=== PATIENT | male | born 1970 | race Caucasian/White ===

== ENCOUNTER 2018-05-14 13:38 | Emergency (ER) | payer BC, OTHER ==
[2018-05-14 15:04] LABS: Absolute Lymphocytes (CBC) 1.9 K/uL (0.7-4.9); Absolute Monocytes 0.4 K/uL (0.1-1.3); Basophils % 0.8 % (0-1.3); MPV 10.8 fL (7.6-11.3); Monocytes % 6.7 % (3.3-12.3); RBC Red Blood Cell Count 4.58 M/uL (4.33-5.43)
--- NOTE | 2018-05-14 15:08 | RAD REPORT ---
EXAM DESCRIPTION: Frank Single View05/14/2018 2:57 pm CLINICAL HISTORY: Chest pain COMPARISON: none FINDINGS: The lungs appear clear of acute infiltrate. The heart is normal size IMPRESSION: No acute abnormalities displayed
--- NOTE | 2018-05-14 15:13 | RAD REPORT ---
EXAM DESCRIPTION: CT - Head Brain Wo Cont - 05/14/2018 2:56 pm CLINICAL HISTORY: Dizziness COMPARISON: None. TECHNIQUE: Computed axial tomography of the head was obtained. IV contrast was not requested. All CT scans are performed using dose optimization technique as appropriate and may include automated exposure control or mA/KV adjustment according to patient size. FINDINGS: An intracranial bleed is not seen . The ventricles are normal in caliber. No extra-axial fluid collection is noted. Fluid within the sinuses/ mastoids is not seen. IMPRESSION: No acute intracranial abnormality is seen. If patient's symptoms persist MRI of the bra in would be recommended.
[2018-05-14 15:25] LABS: ALT/SGPT 48 U/L (12-78); AST/SGOT 29 U/L (15-37); Alkaline Phosphatase 64 U/L (45-117); BUN Blood Urea Nitrogen 12 mg/dL (7-18); Bicarbonate 27 mmol/L (21-32); Bilirubin Direct < 0.1 mg/dL (0-0.2); Bilirubin Total 0.4 mg/dL (0.2-1.0); Glucose Level 101 mg/dL (74-106); Lipase 221 U/L (73-393); Magnesium 2.1 mg/dL (1.8-2.4); NT PRO-BNP 11 pg/mL (<125); Potassium 3.9 mmol/L (3.5-5.1); Protein, Total 7.4 g/dL (6.4-8.2); Sodium Level 139 mmol/L (136-145); Troponin (Emerg Dept Use Only) < 0.02 ng/mL (0.0-0.045)
--- NOTE | 2018-05-14 16:37 | ER ---
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 Transition of care: patient was not received from another setting of care. Onset of symptoms was May 14, 2018. Risk Assessment: Do you want to hurt yourself or someone else? Patient reports no desire to harm self or others. Initial Sepsis Screen: Does the patient meet any 2 criteria? No. Patient's initial sepsis screen is negative. Does the patient have a suspected source of infection? No. Patient's initial sepsis screen is negative. Care prior to arrival: None. 13:40 Method Of Arrival: Ambulatory tw2 13:40 Acuity: CARLOZ 3 tw2 Triage Assessment: 13:42 General: Appears in no apparent distress. Behavior is talkative but states "im drowsy tw2 and i cant stay awake". Pain: Denies pain. Historical: - Allergies: 13:43 No Known Allergies; tw2 - Home Meds: 13:43 colchicine 0.6 mg Oral cap 1 cap once daily [Active]; allopurinol 100 mg Oral tab 1 tab tw2 3 times per day [Active]; Vitamin C 1,000 mg Oral tab [Active]; - PMHx: 13:43 Gout; tw2 - PSHx: 13:43 dental sx; tw2 - Immunization history:: Adult Immunizations. - Social history:: Smoking status: Patient uses tobacco products, smokes one pack cigarettes per day. Patient/guardian denies using alcohol, street drugs. - Ebola Screening: : Patient denies travel to an Ebola-affected area in the 21 days before illness onset. Screenin:45 Abuse screen: Denies threats or abuse. Nutritional screening: No deficits noted. tw2 Tuberculosis screening: No symptoms or risk factors identified. Fall Risk None identified. Vital Signs: 13:41 BP 126 / 85; Pulse 75; Resp 17; Temp 97.8(TE); Pulse Ox 98% on R/A; Weight 117.93 kg tw2 (R); Pain 0/10; 15:16 BP 122 / 85; Pulse 63; Resp 18; Pulse Ox 100% ; sv 16:18 BP 124 / 86; Pulse 61; Resp 16; Pulse Ox 99% on R/A; ph 17:12 BP 124 / 78; Pulse 64; Resp 18; Temp 97.5; Pulse Ox 99% on R/A; ph ED Course: 13:40 Patient arrived in ED. mr 13:41 Triage completed. tw2 13:41 Arm band placed on. tw2 13:42 Jerry Puga DO is Private Physician. mr 13:44 Bed in low position. Call light in reach. Adult w/ patient. tw2 13:46 Maldonado Bernard MD is Attending Physician. gs 13:46 Sujey Baltazar, RN is Primary Nurse. ph 14:[address] sw 14:53 EKG done, by lab animal technologist. reviewed by Maldonado Bernard MD. [facility] 14:54 CT completed. Patient tolerated procedure well. Patient moved back from CT. sw 14:54 Inserted saline lock: 22 gauge in right antecubital area, using aseptic technique. kj1 Blood collected. 14:55 Initial lab(s) drawn, by me, sent to lab. kj1 14:56 CT Head Brain wo Cont In Process Unspecified. EDMS 14:57 XRAY Chest (1 view) In Process Unspecified. EDMS 17:11 No provider procedures requiring assistance completed. IV discontinued, intact, ph bleeding controlled, No redness/swelling at site. Pressure dressing applied. Administered Medications: No medications were administered Point of Care Testing: Blood Glucose: 13:55 Blood Glucose: 86 mg/dL; jb1 Ranges: Outcome: 16:36 Discharge ordered by . gs 17:12 Discharged to home ambulatory, with significant other. ph 17:12 Condition: good 17:12 Discharge instructions given to patient, Instructed on discharge instructions, follow up and referral plans. Demonstrated understanding of instructions, follow-up care. 17:13 Patient left the ED. ph Signatures: Dispatcher [employer] EDMS Alexandre Sosa jb1 Preeti Xiao RN RN Nitza Morales mr Sujey Baltazar RN RN [facility], Adrianna Herman RN RN tw2 Maldonado Bernard MD MD Rosemary Lipscomb 3 Mendy Mcdowell 1
--- NOTE | 2018-05-14 16:38 | EDPHYS ---
Physician Documentation [facility] Name: Johnathan Watkins Age: 47 yrs Sex: Male : 1970 Arrival Date: 05/14/2018 Time: 13:40 Bed 5 Private MD: Jerry Puga H ED Physician Maldonado Bernard HPI: 05/14 16:31 This 47 yrs old Male presents to ER via Ambulatory with complaints of Nausea, gs Weakness. 16:31 The patient presents with lightheadedness. Onset: The symptoms/episode began/occurred gs acutely, just prior to arrival. Context: occurred at work, occurred while the patient was standing. Modifying factors: The symptoms are alleviated by nothing, the symptoms are aggravated by movement of head. Associated signs and symptoms: Pertinent positives: nausea. Severity of symptoms: At their worst the symptoms were severe in the emergency department the symptoms have improved markedly. The patient has experienced similar episodes in the past, a few times. The patient has not recently seen a physician. Historical: - Allergies: 13:43 No Known Allergies; tw2 - Home Meds: 13:43 colchicine 0.6 mg Oral cap 1 cap once daily [Active]; allopurinol 100 mg Oral tab 1 tab tw2 3 times per day [Active]; Vitamin C 1,000 mg Oral tab [Active]; - PMHx: 13:43 Gout; tw2 - PSHx: 13:43 dental sx; tw2 - Immunization history:: Adult Immunizations. - Social history:: Smoking status: Patient uses tobacco products, smokes one pack cigarettes per day. Patient/guardian denies using alcohol, street drugs. - Ebola Screening: : Patient denies travel to an Ebola-affected area in the 21 days before illness onset. ROS: 16:31 Cardiovascular: Negative for chest pain, palpitations. gs 16:31 Respiratory: Negative for pleurisy, shortness of breath. 16:31 All other systems are negative. Exam: 16:31 Head/Face: Normocephalic, atraumatic. Eyes: Pupils equal round and reactive to light, gs extra-ocular motions intact. Lids and lashes normal. Conjunctiva and sclera are non-icteric and not injected. Cornea within normal limits. Periorbital areas with no swelling, redness, or edema. ENT: Nares patent. No nasal discharge, no septal abnormalities noted. Tympanic membranes are normal and external auditory canals are clear. Oropharynx with no redness, swelling, or masses, exudates, or evidence of obstruction, uvula midline. Mucous membranes moist. Neck: Trachea midline, no thyromegaly or masses palpated, and no cervical lymphadenopathy. Supple, full range of motion without nuchal rigidity, or vertebral point tenderness. No Meningismus. Chest/axilla: Normal chest wall appearance and motion. Nontender with no deformity. No lesions are appreciated. Cardiovascular: Regular rate and rhythm with a normal S1 and S2. No gallops, murmurs, or rubs. Normal PMI, no JVD. No pulse deficits. Respiratory: Lungs have equal breath sounds bilaterally, clear to auscultation and percussion. No rales, rhonchi or wheezes noted. No increased work of breathing, no retractions or nasal flaring. Abdomen/GI: Soft, non-tender, with normal bowel sounds. No distension or tympany. No guarding or rebound. No evidence of tenderness throughout. Back: No spinal tenderness. No costovertebral tenderness. Full range of motion. Skin: Warm, dry with normal turgor. Normal color with no rashes, no lesions, and no evidence of cellulitis. MS/ Extremity: Pulses equal, no cyanosis. Neurovascular intact. Full, normal range of motion. Neuro: Awake and alert, GCS 15, oriented to person, place, time, and situation. Cranial nerves II-XII grossly intact. Motor strength 5/5 in all extremities. Sensory grossly intact. Cerebellar exam normal. Normal gait. 16:31 Constitutional: The patient appears alert, awake. 16:31 ECG was reviewed by the Attending Physician. Vital Signs: 13:41 BP 126 / 85; Pulse 75; Resp 17; Temp 97.8(TE); Pulse Ox 98% on R/A; Weight 117.93 kg tw2 (R); Pain 0/10; 15:16 BP 122 / 85; Pulse 63; Resp 18; Pulse Ox 100% ; sv 16:18 BP 124 / 86; Pulse 61; Resp 16; Pulse Ox 99% on R/A; ph 17:12 BP 124 / 78; Pulse 64; Resp 18; Temp 97.5; Pulse Ox 99% on R/A; ph MDM: 14:24 Patient medically screened. gs 16:31 Differential diagnosis: cardiac arrhythmia, vertigo. Data reviewed: vital signs, nurses gs notes, lab test result(s), EKG, radiologic studies. Response to treatment: the patient's symptoms have markedly improved after treatment, the patient's condition has returned to base line, and as a result, I will discharge patient. 05/14 14:25 Order name: Basic Metabolic Panel; Complete Time: 15:28 05/14 14:25 Order name: CBC with Diff; Complete Time: 15:15 05/14 14:25 Order name: LFT's; Complete Time: 15:28 05/14 14:25 Order name: Magnesium; Complete Time: 15:28 05/14 14:25 Order name: NT PRO-BNP; Complete Time: 15:28 05/14 14:25 Order name: PT-INR; Complete Time: 15:28 05/14 14:25 Order name: Troponin (emerg Dept Use Only); Complete Time: 15:28 05/14 14:25 Order name: XRAY Chest (1 view); Complete Time: 15:15 05/14 14:25 Order name: EKG; Complete Time: 14:25 05/14 14:25 Order name: Cardiac monitoring; Complete Time: 14:34 05/14 14:25 Order name: EKG - Nurse/Tech; Complete Time: 14:56 05/14 14:25 Order name: IV Saline Lock; Complete Time: 14:56 05/14 14:25 Order name: Lipase; Complete Time: 15:28 05/14 14:25 Order name: CT Head Brain wo Cont; Complete Time: 15:15 05/14 14:25 Order name: Labs collected and sent; Complete Time: 14:56 05/14 14:25 Order name: O2 Per Protocol; Complete Time: 14:34 05/14 14:25 Order name: O2 Sat Monitoring; Complete Time: 14:34 gs EC:31 Rate is 61 beats/min. Rhythm is regular. UT interval is normal. QRS interval is normal. gs QT interval is normal. T waves are Normal. No ST changes noted. Clinical impression: Normal ECG. Interpreted by me. Administered Medications: No medications were administered Point of Care Testing: Blood Glucose: 13:55 Blood Glucose: 86 mg/dL; jb1 Ranges: Critical Glucose Levels:Adult <50 mg/dl or >400 mg/dl <40 mg/dl or >180 mg/dl Disposition: 05/14/18 16:36 Discharged to Home. Impression: Benign paroxysmal vertigo. - Condition is Stable. - Discharge Instructions: Benign Positional Vertigo. - Medication Reconciliation Form, Thank You Letter, Antibiotic Education, Prescription Opioid Use form. - Follow up: Private Physician; When: 2 - 3 days; Reason: Re-evaluation by your physician. Signatures: Dispatcher [employer] EDSujey Pichardo RN RN ph KoAdrianna RN RN tw2 Maldonado Bernard MD MD gs Corrections: (The following items were deleted from the chart) 17:13 16:36 05/14/2018 16:36 Discharged to Home. Impression: Benign paroxysmal vertigo. ph Condition is Stable. Forms are Medication Reconciliation Form, Thank You Letter, Antibiotic Education, Prescription Opioid Use. Follow up: Private Physician; When: 2 - 3 days; Reason: Re-evaluation by your physician. gs
== END 2018-05-14 17:13 | disposition home or self-care (01) ==
LOC: ER 13:38
DX: H81.10 Benign paroxysmal vertigo, unspecified ear (principal); M10.9 Gout, unspecified; F17.210 Nicotine dependence, cigarettes, uncomplicated
CPT/HCPCS: 36415; 70450; 71045; 80048; 80076; 82962; 83690; 83735; 83880; 84484; 85025; 85610; 93005; 99284